=== PATIENT | female | born 1995 | race African-American/Black ===

== ENCOUNTER 2017-04-25 12:14 | Emergency (ER) | payer SELFPAY ==
[~2017-04-25] VITALS: Ht 180.3 cm; Wt 123.4 kg
--- NOTE | 2017-04-25 12:40 | ED Integumentary General ---
General Chief Complaint: Skin/Wound Problems Stated Complaint: BOIL ON BACK Nursing Triage Note: PATIENT STATES SHE NOTICED A BOIL ON HER LOWER BACK A FEW DAYS AGO. YESTERDAY IT STARTED OOZING PUS. Source: patient Exam Limitations: no limitations History of Present Illness Date Seen by Provider: Apr 25, 2017 Time Seen by Provider: 12:39 Initial Comments To ER with "boil" lower back, the gluteal cleft for 2 days. No history of this. Very painful. No fevers chills or drainage. Timing/Duration: constant, getting worse Severity: moderate Constitutional: see HPI EENTM: see HPI Respiratory: no symptoms reported Cardiovascular: no symptoms reported Genitourinary: no symptoms reported Musculoskeletal: no symptoms reported Skin: see HPI Psychiatric/Neurological: No Symptoms Reported Endocrine: No Symptoms Reported Hematologic/Lymphatic: No Symptoms Reported Past Yhplmyw-Cbhmqi-Eourfg Hx Patient Social History Alcohol Use: Rarely Uses Recreational Drug Use: No Smoking Status: Current Everyday Smoker Type Used: Cigarettes 2nd Hand Smoke Exposure: Yes Recent Foreign Travel: No Contact w/Someone Who Travel: No Recent Infectious Disease Expo: No Recent Hopitalizations: No Seasonal Allergies Seasonal Allergies: No Surgeries History of Surgeries: Yes Surgeries: Orthopedic Respiratory History of Respiratory Disorde: No Cardiovascular History of Cardiac Disorders: No Neurological History of Neurological Disord: No Genitourinary History of Genitourinary Disor: No Gastrointestinal History of Gastrointestinal Di: No Musculoskeletal History of Musculoskeletal Dis: No Endocrine History of Endocrine Disorders: No HEENT History of HEENT Disorders: No Cancer History of Cancer: No Psychosocial History of Psychiatric Problem: No Integumentary History of Skin or Integumenta: No Blood Transfusions History of Blood Disorders: No Physical Exam Vital Signs Vital Sign - Last 12Hours 04/25/17 12:35 Temp 97.7 Pulse 89 Resp 18 B/P (MAP) 136/68 (90) Pulse Ox 96 Capillary Refill : Less Than 3 Seconds General Appearance: WD/WN, no apparent distress HEENT: PERRL/EOMI, normal ENT inspection Neck: non-tender, full range of motion Respiratory: normal breath sounds, no respiratory distress, no accessory muscle use Gastrointestinal: normal bowel sounds, non tender Neurologic/Psychiatric: alert, normal mood/affect, oriented x 3 Skin: normal color, warm/dry Skin Problem Location: other (top of the gluteal cleft there is fluctuant abscess with no erythema) Skin Problem Character: abscess I&D : Blade Size: 11 Packing/Drain: 03/31 Diana Drain Progress abscess anesthetized with 1ml lidocaine then opened with 11blade scalpel. Moderate amount of purulent foul smelling material expressed. cavity was rather deep so I sutured a diana drain into place with 3-0 vicryl. Progress/Results/Core Measures Results/Orders My Orders Orders - DAYNE HALEY APRN Wound Culture (04/25/17 13:05) Vital Signs/I&O Vital Sign - Last 12Hours 04/25/17 12:35 Temp 97.7 Pulse 89 Resp 18 B/P (MAP) 136/68 (90) Pulse Ox 96 Blood Pressure Mean: 90 Departure Impression Impression: Primary Impression: Pilonidal abscess of rodolfo cleft Disposition: HOME, SELF-CARE Condition: Stable Departure-Patient Inst. Decision time for Depature: 13:10 Referrals: NO,LOCAL PHYSICIAN (PCP/Family) Primary Care Physician Patient Instructions: Abscess Incision and Drainage, Pilonidal Cyst (DC) Add. Discharge Instructions: 1. Return to ER for any concerns such as fevers 2. Keep drain in place. You may shower with this drain in place. Keep it covered with gauze to collect drainage. 3. Return to ER in about 5 days (tuesday or tuesday) to have this drain removed. Take antibiotics and pain medication as directed All discharge instructions reviewed with patient and/or family. Voiced understanding. Scripts Metronidazole (Flagyl) 500 Mg Tablet 500 MG PO TID, #21 TAB Prov: DAYNE HALEY APRN 04/25/17 Hydrocodone/Acetaminophen (Star 5-325 Tablet) 1 Each Tablet 1 EACH PO Q4H Y for PAIN-SEVERE, #14 TAB Prov: DAYNE HALEY APRN 04/25/17 Sulfamethoxazole/Trimethoprim (Bactrim Ds Tablet) 1 Each Tablet 1 EACH PO BID, #14 TAB Prov: DAYNE HALEY APRN 04/25/17 DAYNE HALEY APRN Apr 25, 2017 12:40
[2017-04-25] MEDS ORDERED: METR500T PO (13:14)
[2017-04-25] MEDS ORDERED: SULF1TAB35 PO (13:14)
[2017-04-25] MEDS ORDERED: HYDR-757 PO (13:14)
[2017-04-25 13:25] VITALS: BP 136/68
== END 2017-04-25 13:25 | disposition home or self-care (01) ==
LOC: ER 12:18
DX: L05.01 Pilonidal cyst with abscess (principal); F17.210 Nicotine dependence, cigarettes, uncomplicated
CPT/HCPCS: 87070; 87205

== ENCOUNTER 2017-04-30 11:54 | Emergency (ER) | payer SELFPAY ==
[~2017-04-30] VITALS: Ht 172.7 cm; Wt 113.4 kg
[~2017-04-30 11:54] MED LIST: HYDR-757 PO; METR500T PO; SULF1TAB35 PO
--- NOTE | 2017-04-30 12:06 | ED Integumentary General ---
General Chief Complaint: Catheter/Drain/Tube Problems Stated Complaint: REMOVAL OF DRAINAGE DEVICE Source: patient Exam Limitations: no limitations History of Present Illness Date Seen by Provider: Apr 30, 2017 Time Seen by Provider: 12:03 Initial Comments To ER for drain removal. She was seen here 5 days ago for pilonidal abscess treated with incision and drainage and Christiano drain placement. She states the wound feels overall better and she is still getting some drainage out. She did stop taking her antibiotics prematurely due to nausea that caused. Timing/Duration: constant Severity: moderate Allergies and Home Medications Home Medications Hydrocodone/Acetaminophen 1 Each Tablet, 1 EACH PO Q4H PRN for PAIN-SEVERE, #14 Prescribed by: DAYNE HALEY on 04/25/17 1314 Metronidazole 500 Mg Tablet, 500 MG PO TID, #21 Prescribed by: DAYNE HALEY on 04/25/17 1314 Sulfamethoxazole/Trimethoprim 1 Each Tablet, 1 EACH PO BID, #14 Prescribed by: DAYNE HALEY on 04/25/17 1314 Constitutional: see HPI, No chills, No fever EENTM: see HPI Respiratory: no symptoms reported Cardiovascular: no symptoms reported Genitourinary: no symptoms reported Musculoskeletal: no symptoms reported Skin: see HPI Psychiatric/Neurological: No Symptoms Reported Past Afhgmex-Brnjec-Cpugas Hx Patient Social History Type Used: Cigarettes 2nd Hand Smoke Exposure: Yes Recent Foreign Travel: No Contact w/Someone Who Travel: No Recent Hopitalizations: No Seasonal Allergies Seasonal Allergies: No Surgeries History of Surgeries: Yes Surgeries: Orthopedic Respiratory History of Respiratory Disorde: No Cardiovascular History of Cardiac Disorders: No Neurological History of Neurological Disord: No Genitourinary History of Genitourinary Disor: No Gastrointestinal History of Gastrointestinal Di: No Musculoskeletal History of Musculoskeletal Dis: No Endocrine History of Endocrine Disorders: No HEENT History of HEENT Disorders: No Cancer History of Cancer: No Psychosocial History of Psychiatric Problem: No Integumentary History of Skin or Integumenta: No Blood Transfusions History of Blood Disorders: No Physical Exam Vital Signs Capillary Refill : General Appearance: WD/WN, no apparent distress HEENT: PERRL/EOMI, normal ENT inspection Respiratory: no respiratory distress, no accessory muscle use Gastrointestinal: normal bowel sounds, non tender Neurologic/Psychiatric: alert, normal mood/affect, oriented x 3 Skin: normal color, warm/dry Skin Problem Character: abscess (Christiano drain was removed. Small amount of purulent material remains within the wound cavity. Covered with gauze.) Departure Impression Impression: Primary Impression: Wound check, abscess Disposition: 01 HOME, SELF-CARE Condition: Stable Departure-Patient Inst. Decision time for Depature: 12:05 Referrals: NO,LOCAL PHYSICIAN (PCP/Family) Primary Care Physician Patient Instructions: Wound Care Add. Discharge Instructions: 1. Take the nausea medication as necessary so that you're able to take your antibiotics 2. Return to ER for any concerning symptoms 3. Expect this to continue to drain over the next week or 2. Over the period of time it Will heal. All discharge instructions reviewed with patient and/or family. Voiced understanding. DAYNE HALEY APRN Apr 30, 2017 12:06
[2017-04-30] MEDS ORDERED: ONDA8TAB9 PO (12:07)
[2017-04-30 12:09] VITALS: BP 150/64
[2017-04-30] MEDS ORDERED: NITR-65 PO (12:40)
== END 2017-04-30 12:09 | disposition home or self-care (01) ==
LOC: EDUNIT# 11:54 → ER 11:55
DX: L05.01 Pilonidal cyst with abscess (principal); Z77.22 Contact with and (suspected) exposure to environmental tobacco smoke (acute) (chronic)
CPT/HCPCS: 99283

== ENCOUNTER 2017-09-04 18:24 | Emergency (ER) | payer SELFPAY ==
[~2017-09-04] VITALS: Ht 180.3 cm; Wt 113.4 kg
[~2017-09-04 18:24] MED LIST changes: +NITR-65 PO; +ONDA8TAB9 PO
[2017-09-04] MEDS ORDERED: RX-ONDANSETRON 4 MG ODT (ZOFRAN) PPK #4 PO STA (19:56)
[2017-09-04] MEDS ORDERED: ONDA8TAB9 PO (20:02)
--- NOTE | 2017-09-04 20:02 | ED GI ---
General Chief Complaint: Abdominal/GI Problems Stated Complaint: 3 WKS PREG/N/V Nursing Triage Note: patient c/o nausea and vomiting. patient also reports being 3 weeks gestation Sepsis Screen: No Definite Risk History of Present Illness Date Seen by Provider: Sep 04, 2017 Time Seen by Provider: 19:30 Initial Comments 22-year-old female reports for nausea and vomiting. She had a positive test on August 14. Over the last 2-3 day she has been having increased nausea and vomiting. She vomited immediately after being placed in the exam room, then she asked the emergency department tech to provide her with ice chips and crackers. At the time of this exam she hasn't eaten for crackers with no further nausea or vomiting and was taking ice chips. This is her second , she denies any morning sickness with her first . She has not established with a healthcare provider in [facility]. Timing/Duration: Intermittent Severity/Quality: Mild Allergies and Home Medications Allergies Coded Allergies: No Known Drug Allergies (Unverified , 04/30/17) Home Medications Ondansetron 8 Mg Tab.rapdis, 8 MG PO Q6H Prescribed by: LARISSA BROWN on 09/04/172001 Patient Home Medication List Home Medication List Reviewed: Yes Review of Systems Constitutional: no symptoms reported, see HPI Gastrointestinal: See HPI, Nausea, Vomiting All Other Systems Reviewed Negative Unless Noted: Yes Past Omlvnyc-Wxapbs-Ygoyxl Hx Past Med/Social Hx: Reviewed Nursing Past Med/Soc Hx Patient Social History Alcohol Use: Denies Use Recreational Drug Use: No Type Used: Cigarettes 2nd Hand Smoke Exposure: Yes Recent Foreign Travel: No Contact w/Someone Who Travel: No Recent Infectious Disease Expo: No Recent Hopitalizations: No Physical Abuse: No Sexual Abuse: No Seasonal Allergies Seasonal Allergies: No Past Medical History Surgeries: Yes Orthopedic Respiratory: No Cardiac: No Neurological: No : Yes Expected Date of Delivery: Apr 24, 2018 Last Menstrual Period: Jul 18, 2017 Hx : 2 Hx Para: 1 Hx Total # of Abortions (Sp): 0 Reproductive Disorders: No Genitourinary: No Gastrointestinal: No Musculoskeletal: No Endocrine: No HEENT: No Cancer: No Psychosocial: No Nursing Suicide Risk Score: 0 Integumentary: Yes Recent Skin Changes Blood Disorders: No Physical Exam Vital Signs Vital Signs - First Documented 09/04/17 09/04/17 18:58 20:07 Temp 97.2 Pulse 70 Resp 18 B/P (MAP) 134/83 (100) Pulse Ox 99 Capillary Refill : Less Than 3 Seconds General Appearance: WD/WN, no apparent distress HEENT: normal ENT inspection, other (oral mucosa pink and moist) Respiratory: chest non-tender, lungs clear, normal breath sounds, no respiratory distress Cardiovascular: normal peripheral pulses, regular rate, rhythm Gastrointestinal: normal bowel sounds, non tender, soft Neurologic/Psychiatric: no motor/sensory deficits, alert, normal mood/affect, oriented x 3 Skin: normal color, warm/dry, other (skin turgor less than 2 seconds) Progress/Results/Core Measures Results/Orders My Orders Orders - LARISSA BROWN Rx-Ondansetron Po (Rx-Zofran Po) (09/04/17 19:56) Vital Signs/I&O 09/04/17 09/04/17 18:58 20:07 Temp 97.2 Pulse 70 70 Resp 18 18 B/P (MAP) 134/83 (100) 134/83 (100) Pulse Ox 99 99 Blood Pressure Mean: 100 Departure Impression Primary Impression: Nausea and vomiting during prior to 22 weeks gestation Disposition: 01 HOME, SELF-CARE Condition: Improved Departure-Patient Inst. Decision time for Depature: 19:50 Referrals: NO,LOCAL PHYSICIAN (PCP/Family) Primary Care Physician Patient Instructions: Nausea and Vomiting of (DC) Add. Discharge Instructions: Use Zofran every 6 hours as needed for nausea and vomiting. Eat small bland meals frequently. Use sips of oleg amy for nausea and vomiting. Establish care with an HEBREW PROFESSOR in [facility], see medical listing. Return to emergency department if nausea not improving or worsens. All discharge instructions reviewed with patient and/or family. Voiced understanding. Scripts Ondansetron (Zofran Odt) 8 Mg Tab.rapdis 8 MG PO Q6H, #12 TAB 0 Refills Prov: LARISSA BROWN 09/04/17 Work/School Note: Local Medical Staff Listing LARISSA BROWN Sep 04, 2017 20:02
[2017-09-04 20:07] VITALS: BP 134/83
== END 2017-09-04 20:07 | disposition home or self-care (01) ==
LOC: EDUNIT# 18:24 → ER 18:26
DX: O21.9 Vomiting of pregnancy, unspecified (principal); Z3A.22 22 weeks gestation of pregnancy; Z77.22 Contact with and (suspected) exposure to environmental tobacco smoke (acute) (chronic)
CPT/HCPCS: 99283

== ENCOUNTER 2017-09-16 12:48 | Emergency (ER) | payer SELFPAY ==
[~2017-09-16] VITALS: Ht 180.3 cm; Wt 108.9 kg
[2017-09-16] MEDS ORDERED: TETANUS,DIPTH,PERTUSS P/F (BOOSTRIX) 0.5 ML VIAL IM STA (13:04)
[2017-09-16] MEDS ORDERED: LIDOCAINE 2% 20 ML (XYLOCAINE) VIAL INJ STA (13:04)
[2017-09-16] MEDS ORDERED: L.E.T. SYRINGE 5 ML MM STA (13:04)
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
[2017-09-16 15:22] LABS: BILIRUBIN,URINE NEGATIVE (NEGATIVE); CLARITY,URINE SLIGHTLY CLOUDY; COLOR,URINE YELLOW; GLUCOSE, URINE (UA) NEGATIVE (NEGATIVE); KETONES,URINE 4+ (NEGATIVE); LEUKOCYTE ESTERASE ,URINE 2+ (NEGATIVE); NITRITE,URINE NEGATIVE (NEGATIVE); PH,URINE 7 (5-9); PROTEIN,URINE 3+ (NEGATIVE); UROBILINOGEN,URINE 4 MG/DL (NORMAL)
[2017-09-16 15:39] LABS: AMORPHOUS SEDIMENT,UR LARGE AMOR URATES /LPF; BACTERIA,URINE NEGATIVE /HPF
[2017-09-16] MEDS ORDERED: CEPH500C PO ×2 (15:54→16:00)
[2017-09-16 16:00] VITALS: BP 120/87
[2017-09-16] MEDS ORDERED: ONDA4TAB8 SL (16:00)
== END 2017-09-16 16:00 | disposition home or self-care (01) ==
LOC: EDUNIT# 12:48 → ER 12:50
DX: S41.112A Laceration without foreign body of left upper arm, initial encounter (principal); E86.9 Volume depletion, unspecified; N39.0 Urinary tract infection, site not specified; F17.210 Nicotine dependence, cigarettes, uncomplicated; Z87.59 Personal history of other complications of pregnancy, childbirth and the puerperium; Z32.01 Encounter for pregnancy test, result positive; X99.9XXA Assault by unspecified sharp object, initial encounter; Y92.096 Garden or yard of other non-institutional residence as the place of occurrence of the external cause
CPT/HCPCS: 12002; 81000; 84703; 87088; 90715